=== PATIENT | male | born 1955 | race Caucasian/White ===

== ENCOUNTER → 2017-09-21 | Outpatient (CLI) | payer OTHER ==
[~2017-09-21] MED LIST: NORCO 5-325 TA1 EACH PO; STOOL SOFTENER100 MG PO; VITAMIN D1000 UNI1 PO
--- NOTE | ~2017-09-21 | EKG ---
[address] [address] ELECTROCARDIOGRAM REPORT Name: ISABELL RICK [facility] [id number] Admission: 09/21/17 Attend Phys: Papito Tolbert MD Discharge: Date of : 57 Report #: [id number] THIS REPORT FOR: //name// [facility] Test Date: 2017-09-21 Test Time: 07:00:11 Pat Name: ISABELL RICK Department: Room: Gender: Undergraduate Advisor: DELIO : 1955 Requested By: Papito Tolbert Order Number: [id number] MD: Shahab Sousa Measurements Intervals [place] Rate: 73 P: 45 LA: 153 QRS: 33 QRSD: 87 T: 41 QT: 390 QTc: 430 Interpretive Statements Sinus rhythm Normal tracing No previous ECG available for comparison Electronically Signed On 09-21-2017 8:17:59 CDT by Shahab Sousa [email or web address] <ELECTRONICALLY SIGNED> By: Shahab Sousa MD, [facility] 09/21/17 0817 0700 07 Shahab Sousa MD, FACC /EPI
== END | disposition home or self-care (01) ==
LOC: LITH 06:37
DX: N20.1 Calculus of ureter (principal); E11.9 Type 2 diabetes mellitus without complications; Z79.899 Other long term (current) drug therapy